=== PATIENT | male | born 1940 | race Caucasian/White ===

== ENCOUNTER 2019-04-11 11:39 | Emergency (ER) | payer MEDICARE, MEDICAID ==
[~2019-04-11] VITALS: Ht 177.8 cm; Wt 63.6 kg
[2019-04-11 11:51] VITALS: BP 91/41
[2019-04-11] MEDS ORDERED: LIDOcaine 2% 10ml TOPICAL JELLY (Urojet) MM ONE (14:10)
== END 2019-04-11 14:45 | disposition home or self-care (01) ==
LOC: ER 11:39
DX: Z46.6 Encounter for fitting and adjustment of urinary device (principal); G20 Parkinson's disease; I10 Essential (primary) hypertension; J45.909 Unspecified asthma, uncomplicated; G89.29 Other chronic pain
CPT/HCPCS: 51702; 99284